=== PATIENT | female | born 1960 | race Caucasian/White ===

== ENCOUNTER 2017-07-05 13:59 | Emergency (ER) | payer MEDICARE ==
[2017-07-05] MEDS ORDERED: ONDANSETRON HCL IV 4 MG/2 ML VIAL IVP ONE (14:26)
[2017-07-05] MEDS ORDERED: 0.9 % SODIUM CHLORIDE 1000ML 1,000 ML IV SCH (14:30)
--- NOTE | 2017-07-05 14:31 | Emergency Department Record ---
History of Present Illness - General Chief complaint: Nausea, Vomiting, Diarrhea Stated complaint: VOMITING,DIARRHEA Time Seen by Provider: 07/05/17 14:03 Source: Patient Mode of Arrival: Ambulatory Limitations: No limitations - History of Present Illness Initial comments: 56 yo female presents to ED with a CC of nausea, vomiting, and loose stools for the past 48 hours. Patient reports "everytime I urinate I have loose stools". Patient reports starting Augmentin and Tramadol for a dental infection 4 days ago. Patient denies fevers, chills, or abdominal pain symptoms. Patient also reports previous hysterectomy and appendectomy, reports gallbladder is still present. Patient denies health problems at her baseline. MD complaint: Diarrhea, Nausea, Vomiting Onset/Timin -: Days(s) Description of Diarrhea: Water Associated Abdominal Pain: No Radiation: None Consistency: Intermittent Context: Recent anitbiotic use Associated Symptoms: Nausea/vomiting - Related Data Home Medications Medication Instructions Recorded Confirmed Last Taken Citalopram Hydrobromide [Celexa] 40 mg PO DAILY 05/31/15 07/05/17 07/05/17 Duloxetine HCl [Cymbalta] 30 mg PO DAILY 05/31/15 07/05/17 07/05/17 Atenolol 25 mg PO DAILY 09/22/16 07/05/17 07/05/17 Hydrochlorothiazide [Hctz 25Mg] 25 mg PO DAILY 09/22/16 07/05/17 07/05/17 Previous Rx's Medication Instructions Recorded Amoxicillin 500 mg PO TID #21 capsule 07/05/17 Ondansetron [Zofran Odt] 4 mg PO Q6H PRN #20 tab.rapdis 07/05/17 Allergies Allergy/AdvReac Type Severity Reaction Status Date / Time No Known Drug Allergies Allergy Verified 07/05/17 14:09 Travel Screening - Travel/Exposure Within Last 30 Days Have you traveled within the last 30 days?: No Review of Systems Constitutional: Denies: Chills, Fever, Malaise, Night sweats Eyes: Denies: Eye discharge, Eye pain ENT: Denies: Ear pain, Epistaxis Respiratory: Denies: Cough, Dyspnea Cardiovascular: Denies: Chest pain, Dyspnea on exertion Endocrine: Denies: Fatigue, Heat or cold intolerance Gastrointestinal: Reports: Nausea, Vomiting. Denies: Constipation Genitourinary: Denies: Incontinence, Retention Musculoskeletal: Denies: Arthralgia, Back pain, Gout, Joint swelling Skin: Denies: Bruising, Change in color Neurological: Denies: Abnormal gait, Confusion, Headache, Seizure Psychiatric: Denies: Anxiety Hematological/Lymphatic: Denies: Anemia, Blood Clots Past Medical History - SOCIAL HISTORY Smoking Status: Current some day smoker Alcohol Use: None Drug Use: Heavy Drug Use Detail:: Marijuana - RESPIRATORY Hx Respiratory Disorders: No - CARDIOVASCULAR Hx Hypertension: Yes - NEURO Hx Neuro Disorders: Yes Hx Headaches: Yes - GI Hx GI Disorders: Yes Hx Reflux: Yes - Hx Genitourinary Disorders: No - ENDOCRINE Hx Endocrine Disorders: No Hx Diabetes: No Hx Thyroid Disease: No - MUSCULOSKELETAL Hx Musculoskeletal Disorders: No - PSYCH Hx Psych Problems: Yes Hx Anxiety: Yes - HEMATOLOGY/ONCOLOGY Hx Hematology/Oncology Disorders: No Hx Anemia: No Hx Blood Disorders: No Hx Bruising: No Hx Cancer: No Family Medical History Any Significant Family History?: Yes Hx Diabetes: Father, Mother Hx Heart Disease: Father, Mother Physical Exam - General General Appearance: Alert, Oriented x3, Cooperative, Mild distress Limitations: No limitations - Head Head exam: Atraumatic, Normocephalic, Normal inspection Head exam detail: negative: Abrasion, Contusion, Garcia's sign, General tenderness, Hematoma, Laceration - Eye Eye exam: Normal appearance. negative: Conjunctival injection, Periorbital swelling, Periorbital tenderness, Scleral icterus - ENT Ear exam: negative: Auricular hematoma, Auricular trauma Nasal Exam: negative: Active bleeding, Discharge, Dried blood, Foreign body Mouth exam: negative: Drooling, Laceration, Muffled voice, Tongue elevation - Neck Neck exam: Normal inspection. negative: Meningismus, Tenderness - Respiratory Respiratory exam: Normal lung sounds bilaterally. negative: Rales, Respiratory distress, Rhonchi, Stridor - Cardiovascular Cardiovascular Exam: Regular rate, Normal rhythm, Normal heart sounds - GI/Abdominal GI/Abdominal exam: Soft, Tenderness (Mild TTP RUQ, RLQ, no rebound or guarding are present). negative: Rebound, Rigid - Rectal Rectal exam: Deferred - exam: Deferred - Extremities Extremities exam: Normal inspection. negative: Calf tenderness, Pedal edema, Tenderness - Back Back exam: Denies: CVA tenderness (R), CVA tenderness (L) - Neurological Neurological exam: Alert, Normal gait, Oriented X3 - Psychiatric Psychiatric exam: Normal affect, Normal mood - Skin Skin exam: Normal color. negative: Abrasion Type of lesion: negative: abrasion Course Vital Signs 07/05/17 14:05 Temperature 98.8 F Pulse Rate 63 Respiratory 20 Rate Blood Pressure 173/103 Pulse Ox 98 - Reevaluation(s) Reevaluation #1: 07/05/17 15:40 Labs reviewed and are grossly unremarkable for an acute process. C. Diff has not been obtained as the patient has not had any loose stools while in the ED. Reevaluation #2: 07/05/17 15:59 Patient was unable to have a bowel movement, reports that she would prefer to go home and return with a sample. Will d/c Augmentin as this may be the source of her symptoms and initiate amoxicillin for her dental infection with Zofran for her nausea symptoms. Patient appears stable for discharge at this time. Medical Decision Making - Lab Data Result diagrams: 07/05/17 14:30 07/05/17 14:30 Disposition Disposition: Discharge Clinical Impression: Dental infection Nausea & vomiting Qualifiers: Vomiting type: unspecified Vomiting Intractability: non-intractable Qualified Code(s): R11.2 - Nausea with vomiting, unspecified Diarrhea Qualifiers: Diarrhea type: unspecified type Qualified Code(s): R19.7 - Diarrhea, unspecified Disposition: Home, Self-Care Condition: (2) Stable Instructions: Acute Nausea and Vomiting (ED) Additional Instructions: Return to ED if your symptoms worsen or if you have any concerns. Amoxicillin and Zofran as directed. Discontinue Augmentin. Follow-up with your family doctor in 3-5 days as directed. Prescriptions: Amoxicillin 500 mg PO TID #21 capsule Ondansetron [Zofran Odt] 4 mg PO Q6H PRN #20 tab.rapdis PRN Reason: Nausea/Vomiting Forms: Patient Portal Access Time of Disposition: 16:03 Quality - Quality Measures Quality Measures: N/A - Blood Pressure Screening Does Patient Have Any of the Following: No Blood Pressure Classification: Hypertensive Reading Systolic Measurement: 173 Diastolic Measurement: 103 Screening for High Blood Pressure: < First Hypertensive BP, F/U Documented > [ G8950] First Hypertensive Follow-up Interventions: Referral to alternative/primary care provider.
[2017-07-05 14:42] LABS: BASO % 0.1 % (0-6); EOS % 0.5 % (0-6); GRAN % 76.9 % (47-80); HEMATOCRIT 46.9 % (35.0-47.0); LYMPH % 16.4 % (16-45); MEAN CELL VOLUME 92.1 fl (81-97); MEAN CORPUSCULAR HEMOGLOBIN 31.4 pg (27-33); MEAN CORPUSCULAR HGB CONC 34.1 g/dl (32-36); MEAN PLATELET VOLUME 12.9 fl (7.4-10.4); MONO % 6.1 % (0-9); PLATELET COUNT 239 K/uL (130-400); RED BLOOD COUNT 5.09 M/uL (3.80-5.40); RED CELL DISTRIBUTION WIDTH 14.2 % (11.5-14.5); WHITE BLOOD COUNT W/O DIFF 10.5 K/uL (4.2-12.2)
[2017-07-05 14:56] LABS: ALB/GLOB RATIO 1.5 (1.1-1.8); ALBUMIN 4.8 gm/dL (3.5-5.0); ALKALINE PHOSPHATASE 59 U/L (38-126); ALT/SGPT 47 U/L (9-52); ANION GAP 6.6 (7-16); AST/SGOT 26 U/L (14-36); BILIRUBIN,TOTAL 1.06 mg/dL (0.2-1.3); BLOOD UREA NITROGEN 15 mg/dL (7-17); CARBON DIOXIDE 29.4 mmol/L (22-30); CREATININE 0.8 mg/dL (0.52-1.04); EST GLOMERULAR FILTRATION RATE > 60 ml/min; GLUCOSE,RANDOM 118 mg/dL (70-110); TOTAL PROTEIN 8.1 gm/dL (6.3-8.2)
== END 2017-07-05 16:11 | disposition home or self-care (01) ==
LOC: ER 13:59
DX: R11.2 Nausea with vomiting, unspecified (principal); R19.7 Diarrhea, unspecified; K04.7 Periapical abscess without sinus
CPT/HCPCS: 99284 ×2; 96374; 83690; 85025; 80053; J2405; J7030

== ENCOUNTER 2019-05-05 15:14 | Emergency (ER) | payer MEDICAID, MEDICARE ==
[2019-05-05] MEDS ORDERED: KETOROLAC 30 MG/ML VIAL IM ONE (15:29)
--- NOTE | 2019-05-05 15:32 | Emergency Department Record ---
History of Present Illness - General Chief Complaint: Abdominal Pain Stated Complaint: ABDOMINAL PAIN Time Seen by Provider: 05/05/19 15:28 Source: Patient Mode of Arrival: Ambulatory Limitations: No limitations - History of Present Illness Initial Comments: The patient is here due to R lower lateral rib pain for 3 days. She has been coughing for a few days and has had progressively worsening rib pain. There is no fever, AP, vomiting, diarrhea, or any L sided CP. The patient has had similar issues with her "ribs being out". MD Complaint: Other Onset/Timin -: Days(s) Location: R Flank Radiation: Back Severity: Moderate Severity scale (1-10): 7 Quality: Aching, Other Consistency: Constant Improves With: Nothing Worsens With: Eating Associated Symptoms: Nausea - Related Data Patient : No Home Medications Medication Instructions Recorded Confirmed Last Taken Amlodipine Besylate [Norvasc] 2.5 mg PO DAILY 05/05/19 05/05/19 Unknown Previous Rx's Medication Instructions Recorded Cyclobenzaprine HCl [Flexeril] 10 mg PO TID PRN #20 tablet 05/05/19 Naproxen [Naprosyn] 250 mg PO BID #14 tablet 05/05/19 Allergies Allergy/AdvReac Type Severity Reaction Status Date / Time No Known Drug Allergies Allergy Verified 07/05/17 14:09 Travel Screening - Travel/Exposure Within Last 30 Days Have you traveled within the last 30 days?: No Review of Systems Constitutional: Denies: Chills, Fever Eyes: Denies: Eye discharge ENT: Denies: Congestion Respiratory: Denies: Cough, Dyspnea Past Medical History - SOCIAL HISTORY Smoking Status: Current some day smoker - RESPIRATORY Hx Respiratory Disorders: No - CARDIOVASCULAR Hx Cardio Disorders: Yes Hx Hypertension: Yes - NEURO Hx Neuro Disorders: Yes Hx Headaches: Yes - GI Hx GI Disorders: Yes Hx Reflux: Yes - Hx Genitourinary Disorders: No - ENDOCRINE Hx Endocrine Disorders: No Hx Diabetes: No Hx Thyroid Disease: No - MUSCULOSKELETAL Hx Musculoskeletal Disorders: No - PSYCH Hx Psych Problems: Yes Hx Anxiety: Yes - HEMATOLOGY/ONCOLOGY Hx Hematology/Oncology Disorders: No Hx Anemia: No Hx Blood Disorders: No Hx Bruising: No Hx Cancer: No Family Medical History Any Significant Family History?: Yes Hx Diabetes: Father, Mother Hx Heart Disease: Father, Mother Physical Exam - General General Appearance: Alert, Oriented x3, Cooperative, No acute distress - Head Head exam: Atraumatic, Normocephalic, Normal inspection - Eye Eye exam: Normal appearance, PERRL, EOMI - ENT Throat exam: Normal inspection. negative: Tonsillar erythema, Tonsillar exudate - Neck Neck exam: Normal inspection, Full ROM. negative: Tenderness - Respiratory Respiratory exam: Normal lung sounds bilaterally, Chest wall tenderness (There is 100%!!! reproducible tenderness to palpation over the R anterior lateral ribs. ). negative: Rales, Respiratory distress - Cardiovascular Cardiovascular Exam: Regular rate, Normal rhythm, Normal heart sounds - GI/Abdominal GI/Abdominal exam: Soft, Normal bowel sounds. negative: Distended, Rebound, Rigid, Tenderness (There is no RUQ tenderness.) - Extremities Extremities exam: Normal inspection, Full ROM, Normal capillary refill. negative: Tenderness Image of Full Body: 1 - Area of pain and very reproducible tenderness. Course Vital Signs 05/05/19 15:16 Temperature 98.3 F Pulse Rate 64 Respiratory 20 Rate Blood Pressure 163/97 Pulse Ox 97 - Reevaluation(s) Reevaluation #1: The patient is doing a LOT better at this time and her R rib pain is much improved. She is resting comfortably waiting on her lab results. 05/05/19 16:53 Reevaluation #2: The patient is doing a lot better at this time. She still does have mild pain when ONLY when she is moving. There is no AP, nausea, vomiting, diarrhea, or fevers. She is to see her PCP later this week and rest at home until better. 05/05/19 17:04 Medical Decision Making - Data Complexity MDM Data: Labs Ordered and/or Reviewed, X-Ray Ordered and/or Reviewed, EKG Ordered and/or Reviewed - Lab Data Result diagrams: 05/05/19 16:37 05/05/19 16:37 - EKG Data -: EKG Interpreted by Me EKG: No Acute Changes, Normal EKG - Radiology Data Radiology results: Report reviewed (R ribs and chest: Neg per Rad.) Disposition Disposition: Discharge Clinical Impression: Chest wall pain Disposition: Home, Self-Care Condition: (2) Stable Instructions: Chest Wall Pain (ED) Additional Instructions: Please take the Naprosyn and Flexeril as directed and please see your family doctor later this week for recheck. Return to the ER for any worsening pain, fever, vomiting, or trouble urinating. Prescriptions: Cyclobenzaprine HCl [Flexeril] 10 mg PO TID PRN #20 tablet PRN Reason: Pain Naproxen [Naprosyn] 250 mg PO BID #14 tablet Forms: Patient Portal Access Time of Disposition: 17:07 Quality - Quality Measures Quality Measures: N/A - Blood Pressure Screening View Details: Yes Does Patient Have Any of the Following: Active Dx of HTN Blood Pressure Classification: Hypertensive Reading Systolic Measurement: 163 Diastolic Measurement: 97 Screening for High Blood Pressure: Patient Exclusion, Hx of HTN [G9744]
[2019-05-05 16:43] LABS: ABSOLUTE NEUTROPHIL COUNT 6.78; BASO % 0.2 % (0-6); EOS % 1.5 % (0-6); GRAN % 66.8 % (47-80); HEMATOCRIT 43.8 % (35.0-47.0); HEMOGLOBIN 14.6 gm/dl (11.6-16.0); LYMPH % 20.9 % (16-45); MEAN CELL VOLUME 94.6 fl (81-97); MEAN CORPUSCULAR HEMOGLOBIN 31.5 pg (27-33); MEAN CORPUSCULAR HGB CONC 33.3 g/dl (32-36); MEAN PLATELET VOLUME 13.2 fl (7.4-10.4); MONO % 10.6 % (0-9); PLATELET COUNT 191 K/uL (130-400); RED BLOOD COUNT 4.63 M/uL (3.80-5.40); RED CELL DISTRIBUTION WIDTH 13.5 % (11.5-14.5); WHITE BLOOD COUNT W/O DIFF 10.1 K/uL (4.2-12.2)
[2019-05-05 16:52] LABS: BLOOD UREA NITROGEN 11 mg/dL (6-20)
[2019-05-05 16:53] LABS: CREATININE 0.8 mg/dL (0.5-0.9); EST GLOMERULAR FILTRATION RATE > 60 mL/min; LIPASE 25 U/L (13-60); TOTAL PROTEIN 7.1 g/dL (6.6-8.7)
[2019-05-05 16:55] LABS: GLUCOSE,RANDOM 98 mg/dL (74-109)
[2019-05-05 16:57] LABS: ALT/SGPT 17 U/L (<33)
[2019-05-05 16:58] LABS: ALKALINE PHOSPHATASE 62 U/L (35-104); AST/SGOT 18 U/L (10.0-35.0); BILIRUBIN,DIRECT < 0.2 mg/dL (0-0.3)
--- NOTE | 2019-05-07 20:06 | RADIOLOGY REPORT ---
EXAM: RIBS, RIGHT W/PA CHEST HISTORY: PAIN UNDER RIGHT BREAST SINCE SUNDAY. NO KNOWN INJURY. TECHNIQUE: AP and oblique views of the right ribs are obtained as well as an upright PA view of the chest. COMPARISON: Left ribs with PA chest dated 05/31/2015. FINDINGS: There is normal bone mineralization. No acute fracture is seen. No suspicious lytic or blastic bone lesion. There are degenerative changes scattered throughout the visualized spine and there are mild to moderate degenerative changes of the acromioclavicular joints. The heart is not enlarged and no pulmonary venous hypertension is seen. The lungs and pleural spaces remain clear. IMPRESSION: 1. NO ACUTE RIGHT RIB FRACTURE IDENTIFIED. NO SUSPICIOUS LYTIC OR BLASTIC BONE LESION. 2. DEGENERATIVE CHANGES SCATTERED WITHIN THE SPINE AND SHOULDER GIRDLES. 3. NO RADIOGRAPHIC EVIDENCE OF ACUTE CARDIOPULMONARY DISEASE. JOB NUMBER: [id number] MTDD
== END 2019-05-05 17:14 | disposition home or self-care (01) ==
LOC: ER 15:14
DX: R07.89 Other chest pain (principal); R11.0 Nausea; R05 Cough; I10 Essential (primary) hypertension; F17.290 Nicotine dependence, other tobacco product, uncomplicated
CPT/HCPCS: 99284 ×2; 96372; 83690; 80076; 80048; 85027; 71101; 93005; 93010; J1885